=== PATIENT | male | born 1965 | race Caucasian/White ===

== ENCOUNTER 2020-05-23 12:15 | Emergency (ER) | payer BC, OTHER ==
[~2020-05-23] VITALS: Ht 182.8 cm; Wt 104.3 kg
[2020-05-23] MEDS ORDERED: BUPIVACAINE 0.5% 30 ML (SENSORCAINE) VIAL ONE (12:51)
[2020-05-23] MEDS ORDERED: LIDOCAINE 1% INJ 20 ML 20 ML VIAL INJ ONE (13:00)
--- NOTE | 2020-05-23 13:14 | ED Upper Extremity ---
General Chief Complaint: Upper Extremity Stated Complaint: R FINGER SMASHED Nursing Triage Note: Pt reports getting R index finger smashed between a bucket truck and a tree. Bleeding controlled with gauze. Nursing Sepsis Screen: No Definite Risk Source: patient Exam Limitations: no limitations History of Present Illness Date Seen by Provider: May 23, 2020 Time Seen by Provider: 12:50 Initial Comments This is a 55-year-old male presents to the ER with laceration to his right index finger after smashing it between a bucket and pole while cutting a tree. Applied direct pressure, bleeding controlled prior to arrival. Last tetanus greater than 5 years ago. No other injuries reported. Onset: just prior to arrival Severity: severe Allergies and Home Medications Allergies Coded Allergies: No Known Drug Allergies (Unverified , 08/21/15) Home Medications Hydrocodone/Acetaminophen 1 Each Tablet, 1 EACH PO Q4H PRN for PAIN-SEVERE (8- 10) Prescribed by: ALESHIA JUDD on 05/23/20 1459 Sulfamethoxazole/Trimethoprim 1 Each Tablet, 1 EACH PO BID Prescribed by: ALESHIA JUDD on 05/23/20 1459 Patient Home Medication List Home Medication List Reviewed: Yes Review of Systems Constitutional: no symptoms reported EENTM: no symptoms reported Respiratory: no symptoms reported Cardiovascular: no symptoms reported Gastrointestinal: no symptoms reported Genitourinary: no symptoms reported Musculoskeletal: no symptoms reported Skin: see HPI Psychiatric/Neurological: No Symptoms Reported Past Nhxlusp-Frubhx-Riwole Hx Patient Social History Alcohol Use: Occasionally Uses Recreational Drug Use: Yes (marijuana) Smoking Status: Current Everyday Smoker Type Used: Cigarettes 2nd Hand Smoke Exposure: Yes Recent Foreign Travel: No Contact w/Someone Who Travel: No Recent Infectious Disease Expo: No Past Medical History Surgeries: Yes (NOSE) Respiratory: No Cardiac: No Neurological: No Reproductive Disorders: No Sexually Transmitted Disease: No Gastrointestinal: No Musculoskeletal: No Endocrine: No Cancer: No Psychosocial: No Integumentary: No Blood Disorders: No Physical Exam Vital Signs Vital Signs - First Documented 05/23/20 12:50 Temp 36.9 Pulse 70 Resp 16 B/P (MAP) 154/91 (112) Pulse Ox 98 O2 Delivery Room Air Capillary Refill : Less Than 3 Seconds Height, Weight, BMI Height: 6'0" Weight: 250lbs. oz. 113.867316fm; 31.00 BMI Method:Stated General Appearance: WD/WN, no apparent distress Neck: full range of motion, normal inspection Cardiovascular: regular rate, rhythm, no murmur Respiratory: lungs clear, normal breath sounds Shoulder: normal inspection Elbow/Forearm: normal inspection Wrist: Yes normal inspection Hand: Right, laceration (right index finger volar avulsion ) Neurologic/Tendon: normal motor functions, responds to pain Neurologic/Psychiatric: no motor/sensory deficits, alert, normal mood/affect, oriented x 3 Skin: normal color, warm/dry, other (right index distal phalanx volar avulsion ) Procedures/Interventions Other Wound Location Right distal index volar avulsion Wound Length (cm): 2 Wound's Depth, Shape: nail-avulsed, bone Irrigated w/ Saline (ccs): 500 Betadine Prep?: Yes Anesthesia: 1% Lidocaine (3cc lidocaine and 3cc 0.5% bupivicaine ) Volume Anesthetic (ccs): 6 (digital block) Suture Size: 4-0 Number of Sutures: 9 Progress Images of right index finger obtained which show's an acute tuft fracture of the right second digit. This is an irregular burst laceration, with avulsion of the nail, and visualization of the bone. No arterial bleeding appreciated. Sensation intact distal to injury. Area was anesthetized with digital block 3cc Lidocaine 1% mixed with 3 cc Bupivicaine 0.5%. Large area of bruising on the volar pad of the distal fingertip. Area was irrigated with copious amounts of Ancef 1gm irr igation mix. Tolerated well. Loss approximation achieved with 4-0 prolene, #9 sutures. Bulky dressing applied with xeroform. Progress/Results/Core Measures Results/Orders My Orders Orders - ALESHIA JUDD APRN Lidocaine 1% Inj 20 Ml (Xylocaine 1% Inj (05/23/20 13:00) Bupivacaine 0.5% Injection (Sensorcaine (05/23/20 12:51) Finger(S) (05/23/20 13:03) Cefazolin Injection (Ancef Injection) (05/23/20 13:15) Dipht,Pertuss(Acell),Tet Adult (Boostrix (05/23/20 13:15) Medications Given in ED Current Medications Medications Dose Ordered Sig/Charly Route Start Time Stop Time Status Last Admin Dose Admin Cefazolin Sodium 1,000 mg ONCE ONCE IR 05/23/20 13:15 05/23/20 13:16 DC 05/23/20 14:18 1,000 MG Diphtheria/ Tetanus/Acell Pertussis 0.5 ml ONCE ONCE IM 05/23/20 13:15 05/23/20 13:16 DC 05/23/20 14:23 0.5 ML Lidocaine HCl 20 ml ONCE ONCE INJ 05/23/20 13:00 05/23/20 13:01 DC 05/23/20 14:20 3 ML Vital Signs/I&O 05/23/20 15:00 Temp 36.9 Pulse 70 Resp 16 B/P (MAP) 154/91 (112) Pulse Ox 98 O2 Delivery Room Air Diagnostic Imaging Diagonstic Imaging: Xray Plain Films/CT/US/NM/MRI: other (finger) Comments NAME: CHYNA VERDUGO Luis [facility] REC#: [id number] PT STATUS: DEP ER : 1965 PHYSICIAN: ALESHIA JUDD [employer]EWEL[employer] SALES REPRESENTATIVE ADMIT DATE: 05/23/20/ER Signed Date of Exam:05/23/20 FINGER(S) INDICATION: Trauma. Injury. COMPARISON: None. FINDINGS: Three radiographic views of the right hand were obtained and demonstrate acute comminuted tuft fracture of the second distal phalanx. There is mild displacement of the fracture fragments. Overlying soft tissue deformity is also noted. No unexpected radiopaque foreign bodies are seen. There is no intra-articular extension. IMPRESSION: 1. Acute tuft fracture of the right second digit as above. Dictated by: Dictated on workstation # [id number] Dict: 05/23/20 1318 Trans: 05/23/20 1605 [id number] [id number] Interpreted by: BILL THOMPSON MD Electronically signed by: BILL THOMPSON MD 05/23/20 1605 Departure Impression Primary Impression: Fracture of phalanx of hand Additional Impression: Laceration of finger Disposition: 01 HOME, SELF-CARE Condition: Improved Departure-Patient Inst. Decision time for Depature: 14:53 Referrals: NO,LOCAL PHYSICIAN (PCP/Family) Primary Care Physician Patient Instructions: Wound Care (DC), Splint Care, Laceration Repair With Stitches ED Add. Discharge Instructions: Plan: 1. Discharge home. 2. See work restrictions: No lifting over 5 lbs or return of regular work duty until follow up with ortho and sutures are removed. To call Dr. Camejo's office for appointment. 3. Keep hand elevated above your heart for the next 72 hours to reduce swelling and pain. 4. Keep dressing clean and dry. No work requiring strain or soiling to the wound. 5. Take antibiotics as directed and complete full course. 6. May take Tylenol as needed for pain. Take Hydrocodone as needed for breakthrough pain, do not take more than directed. 7. Return to ER on 05/26/20 for wound check. Change dressing daily, and as needed if soiled. 8. Return to ER on 06/02/20 for possible suture removal. 9. Return for any signs of infection despite antibiotics: redness, fever, chills, redness, or purulent drainage. All discharge instructions reviewed with patient and/or family. Voiced understanding. Scripts Hydrocodone/Acetaminophen (Hydrocodone-Acetamin 5-325 mg) 1 Each Tablet 1 EACH PO Q4H PRN for PAIN-SEVERE (8-10), #20 TAB 0 Refills Prov: ALESHIA JUDD [employer] SALES REPRESENTATIVE 05/23/20 Sulfamethoxazole/Trimethoprim (Bactrim Ds Tablet) 1 Each Tablet 1 EACH PO BID for 10 Days, #20 TAB 0 Refills Prov: ALESHIA JUDD [employer] SALES REPRESENTATIVE 05/23/20 ALESHIA JUDD JEWEL[employer] SALES REPRESENTATIVE May 23, 2020 13:14
[2020-05-23] MEDS ORDERED: TETANUS,DIPTH,PERTUSS P/F (BOOSTRIX) 0.5 ML VIAL IM ONE (13:15)
[2020-05-23] MEDS ORDERED: ceFAZolin INJECTION 1,000 MG VIAL IR ONE (13:15)
--- NOTE | 2020-05-23 13:21 | Diagnostic Imaging Report ---
INDICATION: Trauma. Injury. COMPARISON: None. FINDINGS: Three radiographic views of the right hand were obtained and demonstrate acute comminuted tuft fracture of the second distal phalanx. There is mild displacement of the fracture fragments. Overlying soft tissue deformity is also noted. No unexpected radiopaque foreign bodies are seen. There is no intra-articular extension. IMPRESSION: 1. Acute tuft fracture of the right second digit as above. Dictated by: Dictated on workstation # [id number]
[2020-05-23] MEDS ORDERED: ACHD5005 PO (14:59)
[2020-05-23] MEDS ORDERED: SULF1TAB35 PO (14:59)
[2020-05-23 15:00] VITALS: BP 154/91
== END 2020-05-23 15:05 | disposition home or self-care (01) ==
LOC: EDUNIT# 12:15 → ER 12:18
DX: S62.630A Displaced fracture of distal phalanx of right index finger, initial encounter for closed fracture (principal); F17.210 Nicotine dependence, cigarettes, uncomplicated; Z23 Encounter for immunization; W23.1XXA Caught, crushed, jammed, or pinched between stationary objects, initial encounter
CPT/HCPCS: 29130; 73140; 90715

== ENCOUNTER 2020-05-26 12:44 | Emergency (ER) | payer OTHER ==
[~2020-05-26] VITALS: Ht 182.9 cm; Wt 104.3 kg
[~2020-05-26 12:44] MED LIST: ACHD5005 PO; SULF1TAB35 PO
[2020-05-26 12:59] VITALS: BP 144/80
[2020-05-26] MEDS ORDERED: ACHD5005 PO (13:08)
--- NOTE | 2020-05-26 13:09 | ED Suture Removal/Wound Check ---
Suture/Wound Re-check General Appearance: WD/WN, no apparent distress Neuro/Tendon: normal sensation Skin Exam: normal color, warm/dry Physical Exam Vital Signs Vital Signs - First Documented 05/26/20 12:59 Temp 36.8 Pulse 81 Resp 20 B/P (MAP) 144/80 Pulse Ox 98 O2 Delivery Room Air Capillary Refill : General Appearance: WD/WN, no apparent distress Respiratory: normal breath sounds, no respiratory distress, no accessory muscle use Gastrointestinal: normal bowel sounds, non tender Extremities: normal range of motion, non-tender Neurologic/Psychiatric: alert, normal mood/affect, oriented x 3 Skin: normal color, warm/dry Skin Problem Location: other (The pad of the right fingertip has a small blanched area that appears devitalized but this measures only about 4 x 6 mm. The majority of it does ye and is very sensitive to even light touch. Dressing was reapplied.) Departure Impression Primary Impression: Wound pain Disposition: HOME, SELF-CARE Condition: Stable Departure-Patient Inst. Decision time for Depature: 13:06 Referrals: NO,LOCAL PHYSICIAN (PCP/Family) Primary Care Physician Patient Instructions: Wound Care (DC) Add. Discharge Instructions: 1. We will plan to see you back on the for removal of stitches. In the meantime continue to change the dressing as you have been doing. Return to ER before the for any concerns at all. Scripts Hydrocodone/Acetaminophen (Hydrocodone-Acetamin 5-325 mg) 1 Each Tablet 1 EACH PO Q4H PRN for PAIN-SEVERE (8-10), #14 TAB Prov: NICOL RAGSDALE APRN 05/26/20 NICOL RAGSDALE APRN May 26, 2020 13:09
== END 2020-05-26 13:12 | disposition home or self-care (01) ==
LOC: EDUNIT# 12:44 → ER 12:46
DX: G89.18 Other acute postprocedural pain (principal)

== ENCOUNTER 2020-06-02 13:02 | Emergency (ER) | payer OTHER ==
[~2020-06-02] VITALS: Ht 170 cm; Wt 77.0 kg
[2020-06-02 13:27] VITALS: BP 0/0
[2020-06-02] MEDS ORDERED: ACHD5005 PO (13:37)
[2020-06-02] MEDS ORDERED: CEPH-507 PO (13:37)
--- NOTE | 2020-06-02 13:40 | ED Suture Removal/Wound Check ---
Suture/Wound Re-check Suture Removal/Wound Recheck : Suture Removal/Wound Recheck: Sutures removed by RN General Appearance: WD/WN, no apparent distress Physical Exam Vital Signs Vital Signs - First Documented 06/02/20 13:27 Pulse 0 Resp 0 B/P (MAP) 0/0 Pulse Ox 0 Capillary Refill : General Appearance: WD/WN, no apparent distress Neck: non-tender, full range of motion Respiratory: no respiratory distress, no accessory muscle use Gastrointestinal: normal bowel sounds, non tender, soft (yeah) Extremities: normal range of motion, non-tender, slow capillary refill, other (fingertip has become more dusky than during my last exam. Concern for necrosis. Dr. Beck has seen the patient today and will follow-up with him on Thursday.) Neurologic/Psychiatric: alert, normal mood/affect, abnormal cerebellar tests Skin: normal color, warm/dry Departure Impression Primary Impression: Laceration of finger Disposition: HOME, SELF-CARE Condition: Stable Departure-Patient Inst. Decision time for Depature: 13:35 Referrals: NO,LOCAL PHYSICIAN (PCP) Primary Care Physician PABLO BECK DO Patient Instructions: SUTURE CHECK-NO COMPLICATION Add. Discharge Instructions: 1. Plan to see Dr. Beck on Thursday of next week for wound check. Continue the antibiotics and the pain medication and the dressings. All discharge instructions reviewed with patient and/or family. Voiced understanding. Scripts Hydrocodone/Acetaminophen (Hydrocodone-Acetamin 5-325 mg) 1 Each Tablet 1 EACH PO Q4H PRN for PAIN-MODERATE (5-7), #14 TAB Prov: NICOL RAGSDALE APRN 06/02/20 Cephalexin (Keflex) 500 Mg Capsule 500 MG PO TID, #15 CAP Prov: NICOL RAGSDALE APRN 06/02/20 NICOL RAGSDALE APRN Jun 02, 2020 13:40
== END 2020-06-02 13:45 | disposition home or self-care (01) ==
LOC: EDUNIT# 13:02 → ER 13:03
DX: S61.210D Laceration without foreign body of right index finger without damage to nail, subsequent encounter (principal); X58.XXXD Exposure to other specified factors, subsequent encounter